=== PATIENT | female | born 1975 | race Asian ===

== ENCOUNTER 2019-11-06 12:38 | Emergency (ER) | payer BC ==
[~2019-11-06] VITALS: Ht 167.6 cm; Wt 81.6 kg
[2019-11-06 13:01] VITALS: Ht 167.6 cm; Wt 81.6 kg
[2019-11-06 14:52] VITALS: BP 116/77
== END 2019-11-06 14:45 | disposition home or self-care (01) ==
LOC: ED 12:38
DX: S61.052A Open bite of left thumb without damage to nail, initial encounter (principal); W55.01XA Bitten by cat, initial encounter; Y93.89 Activity, other specified; Y92.89 Other specified places as the place of occurrence of the external cause; Y99.8 Other external cause status
CPT/HCPCS: 90715